=== PATIENT | female | born 1970 | race Caucasian/White ===

== ENCOUNTER 2024-06-08 09:34 | Outpatient (CLI) | payer OTHER, SELFPAY ==
--- NOTE | ~2024-06-08 | US_ITS ---
EXAMINATION: US soft tissue groin RT DATE: 06/08/2024 10:10 INDICATION: Bulging mass at the right groin TECHNIQUE: Multiple grayscale and Doppler ultrasound images of the right groin were obtained. COMPARISON: None FINDINGS: 4.5 x 4.4 x 1.8 cm likely fat-containing right inguinal hernia at the region of concern. No evident h erniated peristalsing or shadowing bowel. With Valsalva small amount of feculent be seen moving in an d out of the orifice of the hernia which measures 1.4 x 1.2 cm. IMPRESSION: 1. Small likely fat-containing right inguinal hernia. Reviewed, dictated and finalized at location A.
== END 2024-06-08 09:35 ==
LOC: MICIMG 09:36
PROVIDERS: PCP Internal Medicine Gastroenterology; Visit Provider Internal Medicine Gastroenterology
DX: R19.09 Other intra-abdominal and pelvic swelling, mass and lump (principal)
CPT/HCPCS: 76882

== ENCOUNTER 2024-12-20 11:17 | Outpatient (CLI) | payer OTHER, SELFPAY ==
--- NOTE | ~2024-12-20 | MM_ITS ---
EXAMINATION: MM screening sandra BI w trang HISTORY: Screening TECHNIQUE: Craniocaudal and mediolateral oblique 3-D tomosynthesis images were obtained and synthetic 2-D images were generated. CAD analysis was submitted and interpreted. COMPARISON: 06/21/2020 BREAST PARENCHYMAL COMPOSITION: Not Dense. The breasts are almost entirely fatty. FINDINGS: There is no evidence of suspicious mass, calcification, or architectural distortion to sugg est malignancy in either breast. There has been no suspicious interval change. IMPRESSION: 1. No mammographic evidence of malignancy. 2. Recommend routine screening mammography in one year. BI-RADS Category 1: Negative Reviewed, dictated and finalized at location B. [employer]
== END 2024-12-20 11:18 | disposition home or self-care (01) ==
PROVIDERS: PCP Clinical Nurse Specialist; Visit Provider Obstetrics & Gynecology
DX: Z12.31 Encounter for screening mammogram for malignant neoplasm of breast (principal)
CPT/HCPCS: 77063; 77067